=== PATIENT | female | born 1990 | race Hispanic/Latino ===

== ENCOUNTER 2018-01-28 14:42 | Inpatient (IN) | payer OTHER ==
[2018-01-28 16:17] LABS: Hematocrit 30.3 % (30.3-42.9); Hemoglobin 10.4 gm/dl (10.1-14.3); Mean Corpuscular HGB Conc 34 % (30-34); Mean Corpuscular Hemoglobin 31 pg (28-32); Mean Corpuscular Volume 91 fl (79-97); Platelet Count 262 K/mm3 (140-440); Red Blood Count 3.34 M/mm3 (3.65-5.03); Red Cell Distribution Width 12.2 % (13.2-15.2)
--- NOTE | 2018-01-28 16:38 | History and Physical Report ---
History of Present Illness Date of examination: 01/28/18 (sent from office with elevated BP) History of present illness: EDC Calculations LMP: 03/02/2018 EDC Confirmation: 03/02/2018 Gestational Age: 8 2/7 weeks Past History : 6 Term Births: 3 Living Children: 3 Para: 2 Aborta: 1 Elect. Ab: 1 Spont. Ab: 1 # 1 Delivery date: 2006 Weeks Gestation: 7 Delivery type: SAB Comments: no D&C # 2 Delivery date: 02/2008 Weeks Gestation: 39 labor: no Delivery type: Infant Sex: Male weight: 8-9 Comments: FTD # 3 Delivery date: 06/2009 Weeks Gestation: 39 labor: no Delivery type: Infant Sex: Male weight: 8-12 Comments: elective repeat # 4 Delivery date: 07/30/2010 Weeks Gestation: 39+5 Delivery type: Anesthesia type: spinal Delivery location: [facility] Infant Sex: female weight: 9.38 Name: Lisa Past Medical History: ? heart disease-states after last delivery had cardiology consult and was told another would "kill me". 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 of genital herpes: no Rash, Viral, or Febrile illness since last LMP? no Varicella/Chicken Pox Status: Previous Disease Genetic History Congenital Heart Defect: Mom: no Dad: no Roverto Disease: Mom: no Dad: no Thalassemia Mom: no Dad: no Neural Tube Defect Mom: no Dad: no Down's Syndrome Mom: no Dad: no Dionisio-Sachs Mom: no Dad: no Sickle Cell Disease/Trait Mom: no Dad: no Hemophilia Mom: no Dad: no Muscular Dystrophy Mom: no Dad: no Cystic Fibrosis Mom: no Dad: no Lassen Chorea Mom: no Dad: no Mental Retardation Mom: no Dad: no Fragile X Mom: no Dad: no Other Genetic/Chromosomal Disorder Mom: no Dad: no Child w/other defect Mom: no Dad: no Enviromental Exposures Xray Exposure: no Medication, drug, or alcohol use since LMP: no Chemical/Other Exposure: no Exposure to Cat Liter: no Hx of Parvovirus (Fifth Disease): no Occupational Exposure to Children: none Active Medications (reviewed today): ZOFRAN ODT 8 MG ORAL TABLET DISINTEGRATING (ONDANSETRON) 1 po q12hrs prn Current Allergies (reviewed today): No known allergies Past History - Obstetrical History Expected Date of Delivery: 03/02/18 Actual Gestation: 35 Week(s) 2 Day(s) : 6 Para: 3 (all c/s) Hx # Term Pregnancies: 3 Spontaneous Abortions: 1 Induced : 1 Number of Living Children: 3 Medications and Allergies Allergies Allergy/AdvReac Type Severity Reaction Status Date / Time hydrocodone Allergy Hives Verified 01/28/18 17:50 - Vital Signs Vital signs: Vital Signs Pulse Pulse Ox 125 H 98 01/28/18 15:09 01/28/18 15:09 Temp Pulse Resp BP Pulse Ox 109 H 198/135 97 01/28/18 16:34 01/28/18 15:59 01/28/18 16:34 - Physical Exam Breasts: Positive: deferred Cardiovascular: Regular rate, Normal S1, Normal S2 Lungs: Positive: Normal air movement Abdomen: Positive: normal appearance, soft, normal bowel sounds. Negative: distention, tenderness Genitourinary (Female): Positive: normal external genitalia Vulva: both: normal Vagina: Positive: normal moisture. Negative: discharge Cervix: Negative: lesion, discharge Uterus: Positive: normal size, normal contour Adnexa: both: normal Anus/Rectum: Positive: normal perianal skin, heme negative. Negative: rectal mass, hemorrhoids Extremities: Positive: edema Deep Tendon Reflex Grade: Normal +2 - Obstetrical FHR: category 1 Uterine Contraction Monitor Mode: External Cervical Dilatation: 0 Cervical Effacement Percentage: 40 station: -4 Uterine Contraction Pattern: Regular Uterine Tone Measurement Phase: Resting Uterine Contraction Intensity: Mild Results Result Diagrams: 01/28/18 15:38 01/28/18 15:37 Abnormal lab results 01/28/18 Range/Units 15:38 RBC 3.34 L (3.65-5.03) M/mm3 RDW 12.2 L (13.2-15.2) % All other labs normal. GBS collected Result pending HBsAg Screen Negative Negative *1 RPR Non Reactive Non Reactive *2 Rubella Antibodies, IgG [L] <0.90 index Immune >0.99 *3 Non-immune <0.90 Equivocal 0.90 - 0.99 Immune >0.99 ABO Grouping O *4 Rh Factor Negative *5 Please note: Prior records for this patient's ABO / Rh type are not available for additional verification. Antibody Screen Negative Negative *6 WBC 7.6 x10E3/uL 3.4-10.8 *7 RBC 4.14 x10E6/uL 3.77-5.28 *8 Hemoglobin 13.1 g/dL 11.1-15.9 *9 Hematocrit 39.6 % 34.0-46.6 *10 MCV 96 fL 79-97 *11 MCH 31.6 pg 26.6-33.0 *12 MCHC 33.1 g/dL 31.5-35.7 *13 RDW 13.0 % 12.3-15.4 *14 Platelets 265 x10E3/uL 150-379 *15 Neutrophils 71 % Not Estab. *16 Lymphs 22 % Not Estab. *17 Monocytes 5 % Not Estab. *18 Eos 2 % Not Estab. *19 Basos 0 % Not Estab. *20 ! Immature Cells <No Reported Value> *21 Neutrophils (Absolute) 5.4 x10E3/uL 1.4-7.0 *22 Lymphs (Absolute) 1.6 x10E3/uL 0.7-3.1 *23 Monocytes(Absolute) 0.3 x10E3/uL 0.1-0.9 *24 Eos (Absolute) 0.2 x10E3/uL 0.0-0.4 *25 Baso (Absolute) 0.0 x10E3/uL 0.0-0.2 *26 ! Immature Granulocytes 0 % Not Estab. *27 ! Immature Grans (Abs) 0.0 x10E3/uL 0.0-0.1 *28 ! NRBC <No Reported Value> *29 Hematology Comments: <No Reported Value> *30 Tests: (2) Cystic Fibrosis Profile (944302) ! CF, Screen Comment: *31 RESULTS: Negative for 32 mutations analyzed Tests: (3) HB Solu + Rflx [facility] (246845) Hemoglobin (Hgb) Solubility Negative Negative *33 Tests: (4) Panel 087958 (233537) HIV Screen 4th Generation wRfx Non Reactive Non Reactive *34 Tests: (5) HCV Ab w/Rflx to Verification (518433) ! HCV Ab <0.1 s/co ratio 0.0-0.9 *35 Tests: (6) Comment: (420851) ! Comment: SPRCS *36 Non reactive HCV antibody screen is consistent with no HCV infection, unless recent infection is suspected or other evidence exists to indicate HCV infection. Tests: (7) Urine Culture, Routine (829719) Urine Culture, Routine Final report *37 Tests: (8) Result ([id number]) ! Result 1 No growth *38 Assessment and Plan 27yo all section deliveries, @ 35 weeks sent from office with severe range BPs for PIH evaluation. All labs ordered aware. Noted pt was dash SVE closed Pt admitted for BP mgt and collection of 24hr urine. Pt NPO for possible operative intervention. Pt aware of plan and agrees. All questions addressed.
[2018-01-28 17:05] LABS: Alanine Aminotransferase 8 units/L (7-56); Uric Acid 4.9 mg/dL (3.5-7.6)
[2018-01-28] MEDS ORDERED: COLACE PO PRN (17:05)
[2018-01-28] MEDS ORDERED: ZOFRAN IV PRN (17:05)
[2018-01-28] MEDS ORDERED: TYLENOL PO PRN (17:05)
[2018-01-28] MEDS ORDERED: CELESTONE SOLUSPAN IM SCH (18:00)
[2018-01-28] MEDS ORDERED: LACTATED RINGERS 1,000 ML ONE (21:57)
[2018-01-29] MEDS ORDERED: STADOL IV PRN (04:49)
[2018-01-29] MEDS: LACTATED RINGERS 1,000 ML IV SCH ×3 (05:55→22:24)
[2018-01-29] MEDS ORDERED: TYLENOL PO PRN (08:59)
--- NOTE | 2018-01-29 09:16 | Progress Note ---
Assessment and Plan - Patient Problems (1) 35 weeks gestation of Current Visit: Yes Status: Acute (2) Elevated blood pressure complicating , antepartum Current Visit: Yes Status: Acute Plan to address problem: check UDS, observe closely Complete steroids and 24hour urine (3) Heart disease Current Visit: Yes Status: Acute Plan to address problem: Cardiology consult (4) Previous section Current Visit: Yes Status: Acute (5) Rh negative, maternal Current Visit: Yes Status: Acute Subjective - Subjective Date of service: 01/29/18 Principal diagnosis: IUP@35weeks, elevated BP's, cardiac disease Interval history: This is a 27-year-old female 6 para 3023 who gives a history of cardiac disease with an uncertain diagnosis. Patient states in 2010 after her delivery she was noted to have an irregular heartbeat was evaluated by her vat house supervisor while hospitalized. At the time she was told she had a heart crack user. She never followed up with vat house supervisor for further evaluation. Subsequently she became in 2011 and had a termination because she was told the would kill her however I can't states she did not follow-up with a vat house supervisor. Patient had multiple referrals to vat house supervisor on the which again she was noncompliant. Patient presents the office yesterday for routine OB care center to have excessively elevated blood pressures. She was sent to labor and delivery to evaluate her for preeclampsia. On initial arrival blood pressures were significantly elevated however are now normal. She is still getting evaluated for preeclampsia however we'll consult cardiology for further evaluation of this questionable heart disease. Resting in bed, no complaints, denies HELTON, visual changes and RUQ pain. Patient reports: movement normal, no new complaints Objective - Vital Signs Vital Signs: Vital Signs - 12hr 01/28/18 01/28/18 01/28/18 21:22 22:22 23:49 Temperature Pulse Rate 104 H 104 H 98 H Respiratory Rate Blood Pressure 118/75 120/73 114/65 O2 Sat by Pulse Oximetry 01/29/18 01/29/18 01/29/18 00:23 00:54 00:59 Temperature Pulse Rate 96 H 101 H 92 H Respiratory Rate Blood Pressure 114/63 O2 Sat by Pulse 96 97 Oximetry 01/29/18 01/29/18 01/29/18 01:04 01:09 01:14 Temperature Pulse Rate 96 H 99 H 94 H Respiratory Rate Blood Pressure O2 Sat by Pulse 96 95 96 Oximetry 01/29/18 01/29/18 01/29/18 01:18 01:19 01:22 Temperature Pulse Rate 96 H 91 H 95 H Respiratory Rate Blood Pressure 118/70 O2 Sat by Pulse 94 95 Oximetry 01/29/18 01/29/18 01/29/18 01:24 01:25 01:29 Temperature Pulse Rate 95 H 99 H 94 H Respiratory Rate Blood Pressure O2 Sat by Pulse 96 94 96 Oximetry 01/29/18 01/29/18 01/29/18 01:34 01:39 01:44 Temperature Pulse Rate 94 H 96 H 92 H Respiratory Rate Blood Pressure O2 Sat by Pulse 96 96 96 Oximetry 01/29/18 01/29/18 01/29/18 01:49 01:54 01:59 Temperature Pulse Rate 97 H 108 H 104 H Respiratory Rate Blood Pressure O2 Sat by Pulse 96 95 96 Oximetry 01/29/18 01/29/18 01/29/18 02:04 02:09 02:14 Temperature Pulse Rate 108 H 102 H 94 H Respiratory Rate Blood Pressure O2 Sat by Pulse 97 97 97 Oximetry 01/29/18 01/29/18 01/29/18 02:17 02:19 02:22 Temperature Pulse Rate 92 H 96 H 92 H Respiratory Rate Blood Pressure 121/77 O2 Sat by Pulse 94 95 Oximetry 01/29/18 01/29/18 01/29/18 02:24 02:31 02:36 Temperature Pulse Rate 96 H 95 H Respiratory Rate Blood Pressure O2 Sat by Pulse 96 83 L 97 Oximetry 01/29/18 01/29/18 01/29/18 02:41 02:46 02:51 Temperature Pulse Rate 101 H 102 H 96 H Respiratory Rate Blood Pressure O2 Sat by Pulse 98 99 98 Oximetry 01/29/18 01/29/18 01/29/18 02:56 03:01 03:06 Temperature Pulse Rate 94 H 96 H 97 H Respiratory Rate Blood Pressure O2 Sat by Pulse 98 97 96 Oximetry 01/29/18 01/29/18 01/29/18 03:11 03:13 03:16 Temperature 96.8 F L Pulse Rate 104 H 93 H Respiratory 18 Rate Blood Pressure O2 Sat by Pulse 98 97 Oximetry 01/29/18 01/29/18 01/29/18 03:21 03:23 03:26 Temperature Pulse Rate 114 H 102 H 112 H Respiratory Rate Blood Pressure 126/90 O2 Sat by Pulse 98 98 Oximetry 01/29/18 01/29/18 01/29/18 03:31 03:36 03:41 Temperature Pulse Rate 114 H 122 H 111 H Respiratory Rate Blood Pressure O2 Sat by Pulse 98 98 97 Oximetry 01/29/18 01/29/18 01/29/18 03:46 03:51 03:56 Temperature Pulse Rate 105 H 117 H 105 H Respiratory Rate Blood Pressure O2 Sat by Pulse 98 97 98 Oximetry 01/29/18 01/29/18 01/29/18 04:01 04:06 04:11 Temperature Pulse Rate 92 H 107 H 112 H Respiratory Rate Blood Pressure O2 Sat by Pulse 98 98 99 Oximetry 01/29/18 01/29/18 01/29/18 04:16 04:21 04:22 Temperature Pulse Rate 94 H 113 H 114 H Respiratory Rate Blood Pressure 113/59 O2 Sat by Pulse 98 98 Oximetry 01/29/18 01/29/18 01/29/18 04:26 05:22 05:37 Temperature Pulse Rate 124 H 96 H 108 H Respiratory Rate Blood Pressure 117/63 O2 Sat by Pulse 99 99 Oximetry 01/29/18 01/29/18 01/29/18 05:42 05:47 05:52 Temperature Pulse Rate 106 H 99 H 99 H Respiratory Rate Blood Pressure O2 Sat by Pulse 99 99 98 Oximetry 01/29/18 01/29/18 01/29/18 05:57 06:02 06:07 Temperature Pulse Rate 99 H 106 H 102 H Respiratory Rate Blood Pressure O2 Sat by Pulse 99 99 100 Oximetry 01/29/18 01/29/18 01/29/18 06:12 06:17 06:22 Temperature Pulse Rate 105 H 99 H 105 H Respiratory Rate Blood Pressure 110/69 O2 Sat by Pulse 99 98 99 Oximetry 01/29/18 01/29/18 01/29/18 06:27 06:32 06:37 Temperature Pulse Rate 93 H 103 H 107 H Respiratory Rate Blood Pressure O2 Sat by Pulse 99 99 99 Oximetry 01/29/18 01/29/18 01/29/18 06:42 06:47 06:52 Temperature Pulse Rate 111 H 110 H 109 H Respiratory Rate Blood Pressure O2 Sat by Pulse 99 98 97 Oximetry 01/29/18 01/29/18 01/29/18 06:57 07:02 07:07 Temperature Pulse Rate 102 H 108 H 96 H Respiratory Rate Blood Pressure O2 Sat by Pulse 96 96 96 Oximetry 01/29/18 01/29/18 01/29/18 07:12 07:17 07:22 Temperature Pulse Rate 114 H 116 H 103 H Respiratory Rate Blood Pressure O2 Sat by Pulse 96 98 97 Oximetry 01/29/18 01/29/18 01/29/18 07:23 07:27 07:32 Temperature Pulse Rate 104 H 113 H 97 H Respiratory Rate Blood Pressure 120/73 O2 Sat by Pulse 96 96 Oximetry 01/29/18 01/29/18 01/29/18 07:37 07:42 07:47 Temperature Pulse Rate 105 H 98 H 101 H Respiratory Rate Blood Pressure O2 Sat by Pulse 98 97 97 Oximetry 01/29/18 01/29/18 01/29/18 07:52 07:57 08:02 Temperature Pulse Rate 110 H 105 H 114 H Respiratory Rate Blood Pressure O2 Sat by Pulse 97 98 97 Oximetry 01/29/18 01/29/18 01/29/18 08:17 08:22 08:23 Temperature Pulse Rate 106 H 120 H 102 H Respiratory Rate Blood Pressure 120/74 O2 Sat by Pulse 97 97 Oximetry 01/29/18 01/29/18 01/29/18 08:27 08:32 08:37 Temperature Pulse Rate 110 H 113 H 106 H Respiratory Rate Blood Pressure O2 Sat by Pulse 99 100 99 Oximetry 01/29/18 01/29/18 01/29/18 08:42 08:47 08:52 Temperature Pulse Rate 111 H 105 H 96 H Respiratory Rate Blood Pressure O2 Sat by Pulse 98 97 95 Oximetry 01/29/18 01/29/18 01/29/18 08:57 09:02 09:07 Temperature Pulse Rate 115 H 131 H 105 H Respiratory Rate Blood Pressure O2 Sat by Pulse 97 98 97 Oximetry 01/29/18 09:12 Temperature Pulse Rate 95 H Respiratory Rate Blood Pressure O2 Sat by Pulse 97 Oximetry - Exam Breasts: deferred Lungs: Clear to auscultation, Normal air movement Abdomen: Present: normal appearance, soft. Absent: tenderness, guarding Vulva: both: normal FHR: category 2 Uterine Contraction Monitor Mode: External Uterine Contraction Pattern: Irregular Extremities: edema (trace) Deep Tendon Reflex Grade: Normal but brisk +3 (no clonus) - Labs Labs: Abnormal Labs 01/28/18 01/28/18 15:37 15:38 RBC 3.34 L RDW 12.2 L Creatinine 0.6 L Lactate Dehydrogenase 221 H Laboratory Results - last 24 hr 01/28/18 01/28/18 01/28/18 15:32 15:37 15:38 WBC 7.9 RBC 3.34 L Hgb 10.4 Hct 30.3 MCV 91 MCH 31 MCHC 34 RDW 12.2 L Plt Count 262 Creatinine 0.6 L Estimated GFR > 60 Uric Acid 4.9 AST 16 ALT 8 Lactate Dehydrogenase 221 H HIV 1&2 Antibody Rapid Non react HIV P24 Antigen Non react Blood Type Antibody Screen Antibody Identification 01/28/18 19:46 WBC RBC Hgb Hct MCV MCH MCHC RDW Plt Count Creatinine Estimated GFR Uric Acid AST ALT Lactate Dehydrogenase HIV 1&2 Antibody Rapid HIV P24 Antigen Blood Type O NEGATIVE Antibody Screen Positive Antibody Identification Anti-D (Passively Aquired)
[2018-01-29 09:25] LABS: Bacteria,Urine 1+ /HPF (Negative); Bilirubin,Urine NEG (Negative); Blood,Urine NEG (Negative); Color,Urine Yellow (Yellow); Mucus,Urine 2+ /HPF; Urobilinogen,Urine < 2.0 mg/dL (<2.0)
[2018-01-29 09:34] LABS: Amphetamine Screen,Urine PRESUMPTIVE NEGATIVE; Benzodiazepines Screen,Urine PRESUMPTIVE NEGATIVE; Cannabinoid Screen,Urine PRESUMPTIVE NEGATIVE; Cocaine Screen,Urine PRESUMPTIVE NEGATIVE; Methadone Screen,Urine PRESUMPTIVE NEGATIVE; Opiate Screen,Urine PRESUMPTIVE NEGATIVE
--- NOTE | 2018-01-29 10:47 | Consultation ---
History of Present Illness Consult date: 01/29/18 Requesting physician: HUNG SHARMA Consult reason: other ("cardiac disease") History of present illness: The pt is a 27 YO female that is 35 weeks ( all section deliveries). She is previously unknown to our practice. She was sent from OB/ [facility] office for further evaluation of elevated BPs. Cardiology has been consulted because pt reported a history of cardiac issues during a prior . On evaluation, pt denies any current cardiac complaints. She reports that 3 years ago during her last , she was in recovery following her c- section and the doctors "heard something abnormal" in her heart and she was transferred to CCU. She was reportedly told by a ballast inspector at that time that her heart was in "bad shape" and that another could kill her. She has had no regular cardiology follow-up since that time. Past History Past Medical History: No medical history Past Surgical History: Social history: denies: smoking, alcohol abuse, prescription drug abuse Medications and Allergies Allergies Allergy/AdvReac Type Severity Reaction Status Date / Time hydrocodone Allergy Hives Verified 01/28/18 17:50 Active Meds: Active Medications Acetaminophen (Tylenol) 650 mg PO Q6H PRN PRN Reason: Pain MILD(1-3)/Fever >100.5/HELTON Butorphanol Tartrate (Stadol) 2 mg IV Q2H PRN PRN Reason: Labor Pain Last Admin: 01/29/18 05:40 Dose: 2 mg Docusate Sodium (Colace) 100 mg PO Q12H PRN PRN Reason: Constipation Lactated Ringer's (Lactated Ringers) 1,000 mls @ 125 mls/hr IV DIRECT PHUC Last Admin: 01/29/18 10:17 Dose: 125 mls/hr Multivitamins/Iron/Calcium ( Vitamin) 1 each PO QDAY [facility]UC Ondansetron HCl (Zofran) 4 mg IV Q6H PRN PRN Reason: Nausea And Vomiting Review of Systems Constitutional: no fever, no chills, no sweats Ears, nose, mouth and throat: no ear pain, no nose pain, no sinus pressure, no sinus pain Cardiovascular: no chest pain, no orthopnea, no palpitations, no rapid/ irregular heart beat, no edema, no syncope, no lightheadedness, no shortness of breath, no dyspnea on exertion, no high blood pressure, no leg edema Respiratory: no cough, no shortness of breath, no dyspnea on exertion, no congestion, no wheezing, no pain on inspiration Gastrointestinal: no abdominal pain, no nausea, no vomiting, no diarrhea, no constipation, no change in bowel habits Genitourinary Female: no pelvic pain, no flank pain, no dysuria, no urinary frequency, no urgency Musculoskeletal: no neck stiffness, no neck pain, no shooting arm pain, no arm numbness/tingling, no low back pain, no shooting leg pain, no leg numbness/ tingling, no redness of joints Integumentary: no rash, no pruritis, no redness, no sores, no wounds Neurological: no head injury, no paralysis, no weakness, no parathesias, no numbness, no tingling, no seizures, no syncope Psychiatric: no anxiety Endocrine: no cold intolerance, no heat intolerance Hematologic/Lymphatic: no easy bruising, no easy bleeding, no lymphadenopathy Allergic/Immunologic: no urticaria, no wheezing, no persistent infections Physical Examination Vital Signs Pulse Pulse Ox 125 H 98 01/28/18 15:09 01/28/18 15:09 General appearance: no acute distress HEENT: Positive: PERRL, Normocephaly, Mucus Membranes Moist Neck: Positive: neck supple, trachea midline Cardiac: Positive: Reg Rate and Rhythm, S1/S2 Lungs: Positive: clear to auscultation Neuro: Positive: Grossly Intact Abdomen: Positive: Other (). Negative: Tender Skin: Positive: Clear. Negative: Rash, Wound Musculoskeletal: No Pain, Normal Range of Motion Extremities: Present: edema (trace BLE) Results 01/28/18 15:38 01/28/18 15:37 Cardiac Enzymes 01/28/18 Range/Units 15:37 AST 16 (5-40) units/L Lactate Dehydrogenase 221 H (91-180) units/L CBC 01/28/18 Range/Units 15:38 WBC 7.9 (4.5-11.0) K/mm3 RBC 3.34 L (3.65-5.03) M/mm3 Hgb 10.4 (10.1-14.3) gm/dl Hct 30.3 (30.3-42.9) % Plt Count 262 (140-440) K/mm3 Comprehensive Metabolic Panel 01/28/18 Range/Units 15:37 Creatinine 0.6 L (0.7-1.2) mg/dL AST 16 (5-40) units/L ALT 8 (7-56) units/L - Imaging and Cardiology Echo: pending EKG: pending Assessment and Plan Assessment: Reported history of cardiac issues Preoperative cardiovascular evaluation HTN - improved 35 weeks gestation Plan: Obtain ECG and echocardiogram. Further recommendations to follow per hospital course. The patient has been seen in conjunction with Dr. Wagner who agrees with the assessment and plan of care.
[2018-01-29] MEDS: PRENATAL VITAMIN PO SCH (11:20)
[2018-01-29] MEDS ORDERED: AFLURIA QUAD 2018-2019 SYRINGE IM ONE (12:00)
[2018-01-30] MEDS: LACTATED RINGERS 1,000 ML IV SCH ×2 (08:16→13:53)
[2018-01-30] MEDS: PRENATAL VITAMIN PO SCH (10:18)
--- NOTE | 2018-01-30 11:20 | Progress Note ---
Assessment and Plan - Patient Problems (1) 35 weeks gestation of Current Visit: Yes Status: Acute (2) Elevated blood pressure complicating , antepartum Current Visit: Yes Status: Acute Plan to address problem: -bp stable -24hr protein pending. as per lab machine will be fixed today and test run tomorrow. Sending out the lab won't be resulted until Thursday. This is the information that was given to charge nurse Jeri. I have explained this to pt as well and that her plan of care can't be completed w/o ruling out having those results. She understands she may need early delivery if pre E is ruled in. She again expressed understanding. (3) Heart disease Current Visit: Yes Status: Acute Plan to address problem: -echo reading seems normal -will await final recommendations by cardiology -results were d/w pt (4) Previous section Current Visit: Yes Status: Acute Subjective - Subjective Date of service: 01/30/18 Principal diagnosis: IUP@35 5/7 weeks, elevated BP's, cardiac disease Interval history: Pt states she is feeling much better. She is c/o having some back pain and would like to be able to ambulate or sit in the chair if possible. I advised that she will have continuous monitoring for now. I d/w that ECHO appears wnl and that we are waiting final clearance by cards. Pt also advised that the machine in the lab that runs the 24hr urine protein is down and that her results may not be available until tomorrow. Pt expressed understanding stating she would like to stay inhouse as it is hard for her to commmute from home at this time due to lack of transportation. I had advised that if bpp was normal and if she is cleared by cards she could be d/c home and provider call her with urine results. If in pre E range, she will need delivery at this time due to elevated bps she had on admission. BPs at this time are normal. Pt expressed understanding and agrees with plan of care at this time. Patient reports: movement normal, no new complaints Objective - Vital Signs Vital Signs: Vital Signs - 12hr 01/29/18 01/29/18 01/29/18 23:18 23:23 23:28 Temperature Pulse Rate 98 H 92 H 98 H Respiratory Rate Blood Pressure Blood Pressure [Left] O2 Sat by Pulse 96 96 96 Oximetry 01/29/18 01/29/18 01/29/18 23:30 23:33 23:38 Temperature Pulse Rate 96 H 91 H 95 H Respiratory Rate Blood Pressure 112/61 Blood Pressure [Left] O2 Sat by Pulse 96 96 Oximetry 01/29/18 01/29/18 01/29/18 23:43 23:48 23:53 Temperature Pulse Rate 98 H 96 H 92 H Respiratory Rate Blood Pressure Blood Pressure [Left] O2 Sat by Pulse 96 96 96 Oximetry 01/29/18 01/30/18 01/30/18 23:58 00:02 00:03 Temperature Pulse Rate 96 H 88 93 H Respiratory Rate Blood Pressure 112/62 Blood Pressure [Left] O2 Sat by Pulse 96 97 Oximetry 01/30/18 01/30/18 01/30/18 00:08 00:13 00:18 Temperature Pulse Rate 88 94 H 83 Respiratory Rate Blood Pressure Blood Pressure [Left] O2 Sat by Pulse 96 95 96 Oximetry 01/30/18 01/30/18 01/30/18 00:23 00:28 00:31 Temperature Pulse Rate 90 90 96 H Respiratory Rate Blood Pressure 102/59 Blood Pressure [Left] O2 Sat by Pulse 96 95 Oximetry 01/30/18 01/30/18 01/30/18 00:33 01:01 01:11 Temperature Pulse Rate 89 96 H 114 H Respiratory Rate Blood Pressure 111/64 Blood Pressure [Left] O2 Sat by Pulse 96 98 Oximetry 01/30/18 01/30/18 01/30/18 01:16 01:21 01:26 Temperature Pulse Rate 104 H 92 H 93 H Respiratory Rate Blood Pressure Blood Pressure [Left] O2 Sat by Pulse 97 98 97 Oximetry 01/30/18 01/30/18 01/30/18 01:31 01:36 01:41 Temperature Pulse Rate 100 H 95 H 93 H Respiratory Rate Blood Pressure Blood Pressure [Left] O2 Sat by Pulse 97 98 97 Oximetry 01/30/18 01/30/18 01/30/18 01:46 01:51 01:56 Temperature Pulse Rate 86 92 H 95 H Respiratory Rate Blood Pressure Blood Pressure [Left] O2 Sat by Pulse 100 100 100 Oximetry 01/30/18 01/30/18 01/30/18 02:01 02:06 02:11 Temperature Pulse Rate 92 H 115 H 97 H Respiratory Rate Blood Pressure 112/63 Blood Pressure [Left] O2 Sat by Pulse 99 99 99 Oximetry 01/30/18 01/30/18 01/30/18 02:16 02:21 02:26 Temperature Pulse Rate 92 H 91 H 90 Respiratory Rate Blood Pressure Blood Pressure [Left] O2 Sat by Pulse 99 99 99 Oximetry 01/30/18 01/30/18 01/30/18 02:35 02:40 02:45 Temperature Pulse Rate 108 H 92 H 93 H Respiratory Rate Blood Pressure Blood Pressure [Left] O2 Sat by Pulse 98 100 99 Oximetry 01/30/18 01/30/18 01/30/18 02:50 02:55 03:00 Temperature Pulse Rate 93 H 94 H 90 Respiratory Rate Blood Pressure Blood Pressure [Left] O2 Sat by Pulse 99 99 99 Oximetry 01/30/18 01/30/18 01/30/18 03:02 03:05 03:10 Temperature Pulse Rate 87 91 H 85 Respiratory Rate Blood Pressure 113/67 Blood Pressure [Left] O2 Sat by Pulse 98 99 Oximetry 01/30/18 01/30/18 01/30/18 03:15 03:20 03:25 Temperature Pulse Rate 89 86 91 H Respiratory Rate Blood Pressure Blood Pressure [Left] O2 Sat by Pulse 99 99 98 Oximetry 01/30/18 01/30/18 01/30/18 03:26 03:30 03:35 Temperature Pulse Rate 115 H 102 H 93 H Respiratory Rate Blood Pressure Blood Pressure [Left] O2 Sat by Pulse 83 L 97 97 Oximetry 01/30/18 01/30/18 01/30/18 03:40 03:45 03:50 Temperature Pulse Rate 94 H 95 H 91 H Respiratory Rate Blood Pressure Blood Pressure [Left] O2 Sat by Pulse 98 98 97 Oximetry 01/30/18 01/30/18 01/30/18 03:55 04:00 04:01 Temperature Pulse Rate 90 86 89 Respiratory Rate Blood Pressure 100/54 Blood Pressure [Left] O2 Sat by Pulse 98 98 Oximetry 01/30/18 01/30/18 01/30/18 04:05 04:10 04:15 Temperature Pulse Rate 87 88 93 H Respiratory Rate Blood Pressure Blood Pressure [Left] O2 Sat by Pulse 98 97 98 Oximetry 01/30/18 01/30/18 01/30/18 04:20 04:25 04:30 Temperature Pulse Rate 89 93 H 95 H Respiratory Rate Blood Pressure Blood Pressure [Left] O2 Sat by Pulse 97 97 98 Oximetry 01/30/18 01/30/18 01/30/18 04:35 04:40 04:45 Temperature Pulse Rate 86 87 91 H Respiratory Rate Blood Pressure Blood Pressure [Left] O2 Sat by Pulse 97 97 97 Oximetry 01/30/18 01/30/18 01/30/18 04:50 04:55 05:00 Temperature Pulse Rate 88 93 H 91 H Respiratory Rate Blood Pressure Blood Pressure [Left] O2 Sat by Pulse 96 97 97 Oximetry 01/30/18 01/30/18 01/30/18 05:01 05:05 05:10 Temperature Pulse Rate 90 87 100 H Respiratory Rate Blood Pressure 93/52 Blood Pressure [Left] O2 Sat by Pulse 97 96 Oximetry 01/30/18 01/30/18 01/30/18 05:16 05:21 06:03 Temperature Pulse Rate 100 H 81 88 Respiratory Rate Blood Pressure 118/62 Blood Pressure [Left] O2 Sat by Pulse 96 89 Oximetry 01/30/18 01/30/18 01/30/18 07:01 08:03 08:13 Temperature 97.3 F L Pulse Rate 105 H 90 102 H Respiratory 18 Rate Blood Pressure 110/66 120/62 Blood Pressure 117/58 [Left] O2 Sat by Pulse Oximetry 01/30/18 01/30/18 01/30/18 08:14 09:02 09:21 Temperature Pulse Rate 102 H 97 H 107 H Respiratory Rate Blood Pressure 117/58 130/71 Blood Pressure [Left] O2 Sat by Pulse 98 Oximetry 01/30/18 01/30/18 01/30/18 09:26 09:31 09:36 Temperature Pulse Rate 100 H 98 H 98 H Respiratory Rate Blood Pressure Blood Pressure [Left] O2 Sat by Pulse 98 98 99 Oximetry 01/30/18 01/30/18 01/30/18 09:41 09:46 09:51 Temperature Pulse Rate 92 H 97 H 89 Respiratory Rate Blood Pressure Blood Pressure [Left] O2 Sat by Pulse 98 98 98 Oximetry 01/30/18 01/30/18 01/30/18 09:56 10:01 10:02 Temperature Pulse Rate 107 H 97 H 96 H Respiratory Rate Blood Pressure 91/49 Blood Pressure [Left] O2 Sat by Pulse 97 99 Oximetry 01/30/18 01/30/18 01/30/18 10:06 10:11 10:21 Temperature Pulse Rate 95 H 101 H 117 H Respiratory Rate Blood Pressure Blood Pressure [Left] O2 Sat by Pulse 98 97 85 Oximetry 01/30/18 01/30/18 01/30/18 10:26 10:31 10:36 Temperature Pulse Rate 104 H 104 H 109 H Respiratory Rate Blood Pressure Blood Pressure [Left] O2 Sat by Pulse 98 100 99 Oximetry 01/30/18 01/30/18 01/30/18 10:41 10:46 10:51 Temperature Pulse Rate 99 H 104 H 105 H Respiratory Rate Blood Pressure Blood Pressure [Left] O2 Sat by Pulse 99 99 99 Oximetry 01/30/18 01/30/18 01/30/18 10:56 11:01 11:06 Temperature Pulse Rate 106 H 105 H 106 H Respiratory Rate Blood Pressure 123/74 Blood Pressure [Left] O2 Sat by Pulse 100 100 100 Oximetry 01/30/18 11:11 Temperature Pulse Rate 100 H Respiratory Rate Blood Pressure Blood Pressure [Left] O2 Sat by Pulse 100 Oximetry - Exam Abdomen: Present: normal appearance, soft, normal bowel sounds. Absent: distention, tenderness, guarding FHR: category 2 FHR comments: occasional variables. - Labs Labs: Abnormal Labs 01/28/18 01/28/18 15:37 15:38 RBC 3.34 L RDW 12.2 L Creatinine 0.6 L Lactate Dehydrogenase 221 H Laboratory Results - last 24 hr 01/28/18 15:32 RPR Nonreactive
[2018-01-30] MEDS ORDERED: REGLAN IV ONE (13:49)
[2018-01-30] MEDS ORDERED: BICITRA PO ONE (13:49)
[2018-01-30] MEDS ORDERED: PEPCID IV ONE (13:49)
--- NOTE | 2018-01-30 13:49 | Event Note ---
Date: 01/30/18 BPP noted to be 2/8 or 4/10. Will proceed with delivery at this time as pt is > 32 weeks with abnormal bpp. in addition to c/o decreased movement. I d/w findings and decision to proceed with c/s at this time. Pt agrees. Pt desires BTL but I can't find btl papers that pt has signed. I advised that she will need to rto after her ppv to have the btl. Consents have been signed and placed on the chart. Pt agrees with plan of care and all questions have been addressed and answered.
--- NOTE | 2018-01-30 13:56 | Ultrasound Report ---
FINAL REPORT EXAM: US OB BPP WO NON-STRESS HISTORY: variable decels on NST TECHNIQUE: Grayscale and color doppler ultrasound of the fetus was performed for biophysical profile. PRIORS: None. FINDINGS: A single, live intrauterine fetus is present in cephalic presentation with a heart rate of 133 beats per minute. The placenta is anterior in location. The maximum vertical pocket is 10.3 centimeters. Estimated gestational age is 35 weeks and 5 days with an CARLOS of 03/01/2018. Biophysical profile score of 2 out of 8 was noted. Scores of 0 out of 2 were given for breathing movements, movements and posterior and tone. A score of 2 out of 2 was given for qualitative amniotic fluid volume. IMPRESSION: Biophysical profile score of 2 out of 8. Mildly large maximum vertical pocket of 10.3 centimeters which can be seen in polyhydramnios. Findings were discussed with NAYELI Johnson at 10:43 a.m. [facility] on 01/30/2018.
[2018-01-30] MEDS ORDERED: LACTATED RINGERS 1,000 ML IV SCH (14:00)
[2018-01-30] MEDS ORDERED: ANCEF/STERILE WATER 2 GM/20 ML 2 GM/20 ML SYRINGE IV NR (14:00)
[2018-01-30] MEDS ORDERED: ZOFRAN ONE (14:24)
--- NOTE | 2018-01-30 14:27 | Event Note ---
Date: 01/30/18 Pt belongings given to woman identified as pt mother in law. I spoke with pt and confirmed this and pt requested that she take her things with her.
[2018-01-30] MEDS ORDERED: NACL 0.9% IR ONE (14:40)
[2018-01-30] MEDS ORDERED: WATER FOR IRRIG STERILE IR ONE (14:40)
[2018-01-30] MEDS ORDERED: NEO SYNEPHRINE/NS Syringe(OR USE) IV ONE (15:09)
--- NOTE | 2018-01-30 15:59 | Operative Report ---
Operative Report Operative Report: Date of procedure: 01/30/2018 Pre-operative diagnosis: 35-5/7 weeks gestation Gestational hypertension Nonreassuring testing BPP 2 out of 8 Previous section Desires permanent sterilization Post-operative diagnosis: Same Procedure name(s): Repeat low transverse section via Pfannenstiel skin incision Bilateral tubal ligation via modified Obed method Surgeon: Dr. Roman Director [facility]: SONIA Anesthesia: Spinal EBL: 700 mL Urine output: 150 mL of clear urine out at the end of the procedure Fluids: 1500 mL Findings: Liveborn female infant weight 2744 g Apgars of 7, 4 and 9 at one and 5 and 10 minutes. Grossly normal fallopian tubes and ovaries bilaterally No abdominal adhesions Copious amount of amniotic fluid was clear Indications: Patient was admitted to the hospital for observation due to elevated blood pressures. 24 urine had been completed and results were pending. Since being admitted blood pressures had stabilized within normal range without being on medications. Patient was noted to have category 2 tracing therefore by physical profile was performed. By physical profile was noted to be 2 out of 8. Decision was made this time to proceed with repeat section with bilateral tubal ligation. Consents were signed and placed on the chart. Procedure: Patient was taking to the operating room. Patient was then prepped and draped in sterile fashion after anesthesia was found to be adequate. A low transverse skin incision was made with the scalpel through previous incisional scar and carried down to the underlying layer of fascia with the Bovie. The fascia was then incised in the midline and this incision was extended bilaterally with the Bovie. The superior aspect of the fascia was grasped with Jony clamps tented upward and dissected off of the anterior rectus muscles with the scalpel. In similar fashion the inferior aspect of the fascia was grasped with Jony clamps tented upward and dissected off of the anterior rectus muscles. The rectus muscles were then bluntly divided in the midline. The peritoneum was identified and entered into sharply. The Hang retractor was placed. A lower transverse uterine incision was made with the scalpel and extended bilaterally with the bandage scissors. Artificial rupture of membranes was performed yielding clear amniotic fluid. The 's head was then delivered atraumatically. The anterior shoulder and rest of infant delivered without difficulty. The umbilical cord was clamped x2. The cord was cut. The infant was then placed in sterile bassinet. The cord blood was collected. The placenta was manually extracted in its entirety. The uterus was exteriorized and cleared of all clots and debris. The uterine incision was closed using 0 Vicryl in a running locking fashion. [id number] sutures were used along the incision line to secure excellent hemostasis. Tisseel was placed along the incision line with excellent hemostasis noted. The posterior cul-de-sac was copiously irrigated. The uterus was returned to the abdomen. The gutters were also irrigated. Hang retractor was removed. The anterior rectus muscles were reapproximated using 3-0 Vicryl. The anterior rectus fascia was reapproximated using 0 Vicryl in a running fashion. The subcuticular fat was reapproximated using 2-0 Vicryl in a running fashion. The skin was reapproximated with 4-0 Monocryl in a subcuticular stitch. The patient tolerated the procedure well. Sponge lap and needle counts were all correct x3. Patient was taken to the recovery room awake and in stable condition.
[2018-01-30] MEDS ORDERED: TUCKS PAD TP PRN (16:04)
[2018-01-30] MEDS ORDERED: LANSINOH TP PRN (16:04)
[2018-01-30] MEDS ORDERED: PERCOCET 5/325 PO PRN (16:04)
[2018-01-30] MEDS ORDERED: MYLICON PO PRN (16:04)
[2018-01-30] MEDS ORDERED: NARCAN 0.4 MG/1 ML IV PRN ×2 (16:04→16:24)
[2018-01-30] MEDS: PITOCin/NS 20 UNIT/1000ML DRIP 20 UNITS/1,000 ML BAG IV SCH ×2 (16:05→16:10)
--- NOTE | 2018-01-30 16:23 | Anesthesia Consultation ---
Anesthesia Consult and Med Hx Date of service: 01/30/18 - Airway Anesthetic Teeth Evaluation: Good, Partials Mallampati Class: Class III Intubation Access Assessment: Probably Good - Pulmonary Exam CTA: Yes - Cardiac Exam Cardiac Exam: RRR - Pre-Operative Health Status ASA Pre-Surgery Classification: ASA3, Emergency Proposed Anesthetic Plan: Epidural, Spinal - Pulmonary Hx Asthma: No COPD: No Hx Pneumonia: No - Cardiovascular System Hx Hypertension: No - Central Nervous System Hx Seizures: No Hx Psychiatric Problems: No - Endocrine Hx Renal Disease: No Hx End Stage Renal Disease: No Hx Hypothyroidism: No Hx Hyperthyroidism: No - Hematic Hx Anemia: No Hx Sickle Cell Disease: No - Other Systems Hx Alcohol Use: No
[2018-01-30] MEDS ORDERED: PHENERGAN PO PRN (16:24)
[2018-01-30] MEDS ORDERED: BENADRYL IV PRN (16:24)
[2018-01-30] MEDS ORDERED: PHENERGAN PR PRN (16:24)
[2018-01-30] MEDS ORDERED: DILAUDID IV PRN ×2 (16:24)
[2018-01-30] MEDS ORDERED: ZOFRAN IV PRN (16:24)
--- NOTE | 2018-01-30 16:24 | Anesthesia Day of Surgery ---
Anesthesia Day of Surgery - Day of Surgery Patient Examined: Yes Patient H&P Reviewed: Yes Patient is NPO: Yes
[2018-01-30] MEDS ORDERED: SODIUM CHLORIDE FLUSH SYRINGE 10 ML IV NR ×2 (17:00)
[2018-01-30 18:03] LABS: Creatinine 24 Hour,Urine 1.1 (0.8-2.8); Creatinine,Urine 55.2 mg/dL (0.1-20.0)
[2018-01-30] MEDS: D5LR 1,000 ML IV SCH (19:15)
[2018-01-30] MEDS: TORADOL IV PRN (19:15)
--- NOTE | 2018-01-30 20:54 | Post Anesthesia Evaluation ---
- Post Anesthesia Evaluation Patient Participated: Yes Airway Patent: Yes Stable Respiratory Function: Yes Nausea/Vomiting: No Temp > 96.8F: Yes Pain Manageable: Yes Adequeate Hydration: Yes Anesthesia Complications: No Block Receding Appropriately: Yes Patient on Ventilator: No
[2018-01-31] MEDS: ANCEF/NS 1 GM/50 ML 1 GM/50 ML BAG IV SCH ×2 (00:15→09:13)
[2018-01-31] MEDS: TORADOL IV PRN ×2 (00:22→05:19)
[2018-01-31] MEDS: D5LR 1,000 ML IV SCH (03:09)
[2018-01-31 08:48] LABS: Hematocrit 29.6 % (30.3-42.9); Hemoglobin 9.7 gm/dl (10.1-14.3)
[2018-01-31] MEDS: FEOSOL PO SCH (10:06)
[2018-01-31] MEDS: PRENATAL VITAMIN PO SCH (10:06)
--- NOTE | 2018-01-31 13:07 | Progress Note ---
Assessment and Plan - Patient Problems (1) 35 weeks gestation of Current Visit: Yes Status: Resolved (2) Elevated blood pressure complicating , antepartum Current Visit: Yes Status: Acute Plan to address problem: -BPs have been stable for the most part in normal or low ranges. There are two elevated bps since delivery and since bps have been stable. No meds have been given. Pt not on magnesium -will con't to monitor closely -24hr urine protein was never completed due to machine that does the calculations being repaired. (3) Heart disease Current Visit: Yes Status: Acute (4) Previous section Current Visit: Yes Status: Acute (5) Status post repeat low transverse section Current Visit: Yes Status: Acute Plan to address problem: -routine post op care -pt prefers to remain inhouse until POD #3 as infant is in NICU -doing well Subjective - Subjective Date of service: 01/31/18 Principal diagnosis: POD #1 s/p c/s @ 36 wks for abnormal BPP Interval history: Pt pain is well controlled. She has been to NICU to see the infant and is pumping and storing breast milk. She is happy and states she is doing well. Pt s /wp flattus and has had regular diet for breakfast w/o n/v. No headaches or blurry vision at this time. No chest pain, dizziness, or palpitations. Patient reports: appetite normal, voiding normally, pain well controlled, flatus , ambulating normally, no dizzy ambulation, no bowel movement [place]: doing well, in NICU, other (tube feedings with breast milk at this time ) Objective - Vital Signs Latest vital signs: Vital Signs Temp Pulse Resp BP BP Pulse Ox 01/31/18 10:39 94/63 01/31/18 10:37 98 F 96 H 18 151/98 01/31/18 08:37 89 96 01/31/18 05:49 18 01/31/18 05:19 18 01/31/18 04:00 98.6 F 100 H 18 123/91 01/31/18 00:52 18 01/31/18 00:22 18 01/31/18 00:00 99.1 F 99 H 18 130/78 100 01/30/18 20:00 97.8 F 99 H 18 119/53 99 01/30/18 19:45 18 01/30/18 17:50 98.8 F 98 H 18 122/76 99 01/30/18 16:55 98.7 F 90 14 137/70 100 01/30/18 16:50 86 14 132/79 100 01/30/18 16:45 86 14 133/67 100 01/30/18 16:40 85 14 127/74 100 01/30/18 16:35 87 15 129/82 100 01/30/18 16:30 91 H 15 110/62 100 01/30/18 16:25 91 H 15 127/110 100 01/30/18 16:20 94 H 14 110/71 100 01/30/18 16:15 91 H 14 106/69 100 01/30/18 16:10 98 H 14 106/65 100 01/30/18 16:05 91 H 14 105/72 100 01/30/18 16:00 96 H 16 125/68 100 01/30/18 15:55 98 H 16 112/68 100 01/30/18 15:52 98.6 F 98 H 16 123/71 100 01/30/18 15:30 159 H 93 01/30/18 14:13 107 H 98 01/30/18 14:12 110 H 131/86 01/30/18 14:08 112 H 100 01/30/18 13:50 105 H 100 01/30/18 13:44 111 H 100 01/30/18 13:39 110 H 100 01/30/18 13:34 108 H 100 01/30/18 13:29 117 H 100 01/30/18 13:24 110 H 100 01/30/18 13:19 113 H 100 01/30/18 13:14 115 H 99 01/30/18 13:09 114 H 100 01/30/18 13:04 109 H 100 Intake and Output 01/30/18 01/31/18 01/31/18 22:59 06:59 14:59 Intake Total 1000 1277.5 360 Output Total 1750 2800 2 Balance -750 -1522.5 358 Intake: IV 1000 1037.5 ANCEF/NS 1 GM/50 ML 1 gm 50 In 50 ml @ 100 mls/hr IV Q8H [facility] Rx#:[id number] D5lr 1,000 ml @ 125 mls/ 987.5 hr IV DIRECT [facility] Rx#: [id number] Oral 240 360 Output: Urine 1750 2800 2 Indwelling Catheter 1100 2600 2 Void 200 Other: Total, Intake Amount 240 360 Total, Output Amount 1100 200 2 # Voids Indwelling Catheter 2 Void 1 Estimated Blood Loss 700 - Exam Breasts: Present: normal Cardiovascular: Present: Normal S1, Normal S2 Lungs: Present: Clear to auscultation, Normal air movement Abdomen: Present: normal appearance, soft, normal bowel sounds. Absent: distention, tenderness, guarding Uterus: Present: normal, firm, fundal height below umbilicus Extremities: Present: normal. Absent: tenderness, edema Deep Tendon Reflex Grade: Normal +2 Incision: Present: normal, dry, intact, dressed - Labs Labs: Abnormal lab results 01/30/18 01/31/18 Range/Units 14:02 08:18 Hgb 9.7 L (10.1-14.3) gm/dl Hct 29.6 L (30.3-42.9) % Urine Creatinine 55.2 H (0.1-20.0) mg/dL
[2018-01-31] MEDS ORDERED: BOOSTRIX IM ONE (16:06)
[2018-01-31] MEDS: MOTRIN PO PRN ×2 (16:39→21:59)
[2018-02-01] MEDS: MOTRIN PO PRN ×3 (05:35→18:03)
[2018-02-01] MEDS ORDERED: BOOSTRIX IM ONE (06:00)
--- NOTE | 2018-02-01 06:47 | Progress Note ---
Assessment and Plan - Patient Problems (1) delivery delivered Onset Date: ~02/01/18 Current Visit: Yes Status: Acute Plan to address problem: Resting No c/o voiced VSS FF below umb Lochia small Incision D&I Asymptomatic anemia Doing well s/p section P: continue pathway plan d/c for tomorrow Subjective - Subjective Date of service: 02/01/18 (pt asking to stay one more day) Principal diagnosis: POD #2 s/p c/s @ 36 wks for abnormal BPP Interval history: EDC Calculations LMP: 03/02/2018 EDC Confirmation: 03/02/2018 Gestational Age: 8 2/7 weeks Past History : 6 Term Births: 3 Living Children: 3 Para: 2 Aborta: 1 Elect. Ab: 1 Spont. Ab: 1 # 1 Delivery date: 2006 Weeks Gestation: 7 Delivery type: SAB Comments: no D&C # 2 Delivery date: 02/2008 Weeks Gestation: 39 labor: no Delivery type: Infant Sex: Male weight: 8-9 Comments: FTD # 3 Delivery date: 06/2009 Weeks Gestation: 39 labor: no Delivery type: Sex: Male weight: 8-12 Comments: elective repeat # 4 Delivery date: 07/30/2010 Weeks Gestation: 39+5 Delivery type: Anesthesia type: spinal Delivery location: [facility] Sex: female weight: 9.38 Name: Lisa Past Medical History: ? heart disease-states after last delivery had cardiology consult and was told another would "kill me". Past Surgical History: negative Gastric Bypass: October 2016 Past Medical History Surgery (Non-nuclear weapons custodian): negative Gastric Bypass: October 2016 Abnormal PAP: negative HARLEEN Exposure: negative Infertility: negative Uterine Anomaly: negative Uterine Surgery (not C/S): negative Other Gynecologic Problems: negative Medical History Comments: heart dz Family Hx: negative Social Hx: single no t/d/E Infection History Hx of STD: none Partner hx. of genital herpes: no Rash, Viral, or Febrile illness since last LMP? no Varicella/Chicken Pox Status: Previous Disease Genetic History Congenital Heart Defect: Mom: no Dad: no Roverto Disease: Mom: no Dad: no Thalassemia Mom: no Dad: no Neural Tube Defect Mom: no Dad: no Down's Syndrome Mom: no Dad: no Dionisio-Sachs Mom: no Dad: no Sickle Cell Disease/Trait Mom: no Dad: no Hemophilia Mom: no Dad: no Muscular Dystrophy Mom: no Dad: no Cystic Fibrosis Mom: no Dad: no [place] Chorea Mom: no Dad: no Mental Retardation Mom: no Dad: no Fragile X Mom: no Dad: no Other Genetic/Chromosomal Disorder Mom: no Dad: no Child w/other defect Mom: no Dad: no Enviromental Exposures Xray Exposure: no Medication, drug, or alcohol use since LMP: no Chemical/Other Exposure: no Exposure to Cat Liter: no Hx of Parvovirus (Fifth Disease): no Occupational Exposure to Children: none Active Medications (reviewed today): ZOFRAN ODT 8 MG ORAL TABLET DISINTEGRATING (ONDANSETRON) 1 po q12hrs prn Current Allergies (reviewed today): No known allergies Patient reports: appetite normal, voiding normally, pain well controlled, ambulating normally [place]: in NICU Objective - Vital Signs Latest vital signs: Vital Signs Temp Pulse Resp BP BP Pulse Ox 02/01/18 00:30 98.1 F 105 H 18 116/81 01/31/18 16:02 116 H 139/96 97 01/31/18 10:39 94/63 01/31/18 10:37 98 F 96 H 18 151/98 01/31/18 08:37 89 96 Intake and Output 01/31/18 01/31/18 02/01/18 14:59 22:59 06:59 Intake Total 360 290 120 Output Total 2 Balance 358 290 120 Intake: IV 50 ANCEF/NS 1 GM/50 ML 1 gm 50 In 50 ml @ 100 mls/hr IV Q8H [facility] Rx#:[id number] Oral 360 Intake, Free Water 240 120 Output: Urine 2 Indwelling Catheter 2 Other: Total, Intake Amount 360 Total, Output Amount 2 # Voids Indwelling Catheter 2 Void 2 1 - Exam Breasts: Present: normal Cardiovascular: Present: Regular rate Lungs: Present: Normal air movement Abdomen: Present: normal appearance, soft Uterus: Present: normal, fundal height below umbilicus Extremities: Present: normal Incision: Present: normal, dry, intact - Labs Labs: Abnormal lab results 01/31/18 Range/Units 08:18 Hgb 9.7 L (10.1-14.3) gm/dl Hct 29.6 L (30.3-42.9) %
--- NOTE | 2018-02-01 11:56 | Progress Note ---
Assessment and Plan ECG and echocardiogram WNL. Pt s/p . Currently stable cardiac status. Nothing further to add from cardiac perspective at this time. Will sign off. If desired, pt may follow up in our office with Dr. Wagner ([phone]) The patient has been seen in conjunction with Dr. Powers who agrees with the assessment and plan of care. - Patient Problems (1) Preoperative cardiovascular examination Current Visit: Yes Status: Acute (2) 35 weeks gestation of Current Visit: Yes Status: Resolved (3) HTN (hypertension) Current Visit: Yes Status: Acute Subjective Date of service: 02/01/18 Principal diagnosis: POD #2 s/p c/s @ 36 wks for abnormal BPP Interval history: pt sitting up at bedside, no current complaints. s/p . Objective Last Vital Signs Temp 98.2 F 02/01/18 10:09 Pulse 101 H 02/01/18 10:09 Resp 18 02/01/18 10:09 BP 123/76 02/01/18 10:09 Pulse Ox 97 01/31/18 16:02 - Physical Examination General: No Apparent Distress HEENT: Positive: PERRL, Normocephaly, Mucus Membranes Moist Neck: Positive: neck supple, trachea midline Cardiac: Positive: Reg Rate and Rhythm, S1/S2 Lungs: Positive: clear to auscultation Neuro: Positive: Grossly Intact Abdomen: Positive: Other ( surgical site) Skin: Positive: Clear, Other ( surgical site). Negative: Rash Musculoskeletal: No Pain, Normal Range of Motion Extremities: Present: edema (trace BLE) - Imaging and Cardiology EKG: report reviewed, image reviewed Echo: report reviewed - Telemetry EKG Rhythm: Sinus Rhythm
[2018-02-01] MEDS: PRENATAL VITAMIN PO SCH (12:10)
[2018-02-01] MEDS: FEOSOL PO SCH (12:10)
[2018-02-02] MEDS: MOTRIN PO PRN ×2 (01:07→09:01)
--- NOTE | 2018-02-02 07:12 | Discharge Summary ---
Providers - Providers Date of Admission: 01/28/18 19:37 Date of discharge: 02/02/18 (pt agrees with d/c ) Attending physician: MARLEY STOREY 01/29/18 08:57 Consult to Cardiology [CONS] Urgent Consulting Provider: FAVIAN BERGMAN Reason For Exam: IUP at 35 weeks with cardiac disease Primary care physician: MARLEY STOREY Hospitalization Reason for admission: other (elevated blood pressures) Delivery: Procedure: bilateral tubal ligation, repeat low transverse Episiotomy: none Laceration: none Incision: normal, dry, intact Other procedures: none complications: none Discharge diagnosis: IUP at term delivered [place] baby: female (remains in NICU) Hospital course: uncomplicated repeat c/s with tubal blood pressures elevated on admission Pt A&O X 3 No c/o [place], blurred vision, chest pain. VSS FF below umb Lochia scant Incision D&I Doing well s/p section P: d/c today with instructions RTO 1 weeks postop care and BP check. Condition at discharge: Good Disposition: DC-01 TO HOME OR SELFCARE - Discharge Diagnoses (1) delivery delivered Status: Acute Comment: RTO 1 week postop care Plan - Discharge Medications Prescriptions: Ibuprofen 800 mg PO Q6HR #30 tablet oxyCODONE /ACETAMINOPHEN [Percocet 5/325] 1 tab PO Q4HR #30 tab - Provider Discharge Summary Activity: routine, no sex for 6 weeks, no heavy lifting 4 weeks, no strenuous exercise Diet: routine Instructions: routine Additional instructions: [] Smoking cessation referral if applicable(refer to patient education folder for contact #) [] Refer to [facility] Booklet Call your doctor immediately for: * Fever > 100.5 * Heavy vaginal bleeding ( >1 pad per hour) * Severe persistent headache * Shortness of breath * Reddened, hot, painful area to leg or breast * Drainage or odor from incision. * Keep incision clean and dry at all times and follow doctor's instructions regarding bathing/showering - Follow up plan Follow up: MARLEY STOREY MD [Primary Care Provider] - 7 Days (Congratulations! Please call [phone] to schedule your postoperative visit and blood pressure check in one week. Take medications as prescribed. Call with headache unrelieved with Tylenol, blurred vision, chest pain. Call with concerns.)
--- NOTE | 2018-02-02 09:31 | Query-Anemia ---
Deamiguel ángel Lux Date:____02/02/18 Conveyor Man/CDS:___jennifer Phone#:__[phone] Exercise your independent professional judgment when responding to this query. Questions asked do not imply a particular answer is desired or expected. We greatly appreciate your clarification on this issue. Clinical Documentation States: 27yo all section deliveries, @ 35 weeks sent from office with severe range BPs for PIH evaluation Operative Report: Date of procedure: 01/30/2018 Pre-operative diagnosis: 35-5/7 weeks gestation Gestational hypertension Nonreassuring testing BPP 2 out of 8 Previous section Desires permanent sterilization Post-operative diagnosis: Same Procedure name(s): Repeat low transverse section via Pfannenstiel skin incision Bilateral tubal ligation via modified Newberry method Surgeon: Dr. Roman EBL: 700 mL Clinical Findings Show: 01/28/18 01/31/18 Hb 10.4 9.7 Hct 30.3 29.6 Etiology: [ x] Anemia due to acute blood loss [ ] Anemia due to chronic blood loss [ ] Anemia secondary to ESRD [ ] Anemia secondary to neoplastic disease [ ] Iron deficiency anemia due to malabsorption [ ] GI Bleed from: [ ] Anemia of chronic disease ,Other: [ ] Precipitous Drop in Hemoglobin [ ] Precipitous Drop in Hematocrit [ ] Other: [ ] Unable to determine [ ] Comment/Explanation: Present on Admission: [ ] Yes (Y) [ ] Clinically undeterminable (W) [ n ] No (N) Please also document response in your Progress Notes and/or Discharge Summary and indicate if the condition was present on admission. CAROLED
[2018-02-02] MEDS: FEOSOL PO SCH (10:59)
[2018-02-02 20:07] VITALS: BP 128/93
== END 2018-02-02 13:18 | disposition home or self-care (01) | DRG 765 ==
LOC: TRG 14:42 → LD 19:37 → OB 01-30 18:45
PROVIDERS: ADMIT Obstetrics & Gynecology; ATTEND Obstetrics & Gynecology
PROC: 10D00Z1 Extraction of Products of Conception, Low, Open Approach (ICD-10-PCS; principal; 2018-01-28)
PROC: 0UT70ZZ Resection of Bilateral Fallopian Tubes, Open Approach (ICD-10-PCS; 2018-01-28)
DX: O75.0 Maternal distress during labor and delivery (principal); D62 Acute posthemorrhagic anemia; Z3A.35 35 weeks gestation of pregnancy; Z37.0 Single live birth; O99.02 Anemia complicating childbirth
CPT/HCPCS: 36415; 76819; 80307; 81001; 82565; 82570; 83615; 84156; 84450; 84460; 84550; 85014; 85018; 85027; 86592; 86850; 86870; 86900; 86901; 87806; 88302; 88305; 88307; 90471; 90686; 90715; 93005; 93010; 93306; 94002; 94003; 99211; C9250; G0463; J0595; J0690; J0702; J1170; J1885; J2370; J2405; J2590; J2765; J7120; J7121